=== PATIENT | female | born 1970 | race Caucasian/White ===

== ENCOUNTER 2016-11-01 09:01 | Emergency (ER) | payer OTHER ==
[~2016-11-01] VITALS: Ht 162.5 cm; Wt 86.2 kg
[~2016-11-01 09:01] MED LIST: KETOPROFEN75 MG PO; MOTRIN800 MG PO; PHENERGAN W/DM120 ML PO; PREDNICOT10 MG PO; PROAIR HFA0.09 MG/AC INH; VIBRAMYCIN100 MG PO
[2016-11-01] MEDS ORDERED: NAPROSYN500 MG PO (11:16)
== END 2016-11-01 11:22 | disposition home or self-care (01) ==
LOC: ED 09:01
DX: S20.211A Contusion of right front wall of thorax, initial encounter (principal); F17.200 Nicotine dependence, unspecified, uncomplicated; Z88.0 Allergy status to penicillin; W18.39XA Other fall on same level, initial encounter; Y93.89 Activity, other specified; Y92.89 Other specified places as the place of occurrence of the external cause; Y99.8 Other external cause status

== ENCOUNTER → 2017-12-06 | Outpatient (CLI) | payer OTHER ==
[~2017-12-06] MED LIST changes: +DOXYCYCLINE100 M3 PO; +NAPROSYN500 MG PO
== END | disposition home or self-care (01) ==
LOC: RAD 16:05
DX: J43.9 Emphysema, unspecified (principal); M54.9 Dorsalgia, unspecified

== ENCOUNTER → 2018-01-10 | Outpatient (CLI) | payer OTHER | END | disposition home or self-care (01) | LOC: LAB 16:04 | PROVIDERS: Family Medicine | DX: T14.8XXD Other injury of unspecified body region, subsequent encounter (principal); W57.XXXD Bitten or stung by nonvenomous insect and other nonvenomous arthropods, subsequent encounter ==

== ENCOUNTER 2018-01-22 12:57 | Emergency (ER) | payer OTHER ==
--- NOTE | ~2018-01-22 | EKG ---
[place], [place] ELECTROCARDIOGRAM REPORT NAME: SERGEY BRITO UNIT #: [id number] ROOM: DOCTOR: EPIPHANY DRAFT REPORT BIRTHDATE: [birth year] [facility] Test Date: 2018-01-22 Test Time: 15:35:53 Pat Name: SERGEY BRITO Department: Room: Gender: F [employer]: ROSE : 1970 Requested By: MARTELL BEAVER DNP Order Number: [id number] Reading MD: Yaron Zimmerman MD Measurements Intervals [place] Rate: 78 P: 75 [place]: 141 QRS: 58 QRSD: 84 T: 19 QT: 351 QTc: 400 Interpretive Statements Sinus rhythm No previous ECG available for comparison Electronically Signed On 01-22-2018 15:39:28 PST by Yaron Zimmerman MD CM:EKGRPT:ELECTROCARDIOGRAM REPORT [id number] MARTELL RUSTANY DRAFT REPORT MARTELL BEAVER DNP
[~2018-01-22 12:57] MED LIST changes: -DOXYCYCLINE100 M3 PO
[2018-01-22 14:57] LABS: BASO # 0.1 10*3/uL (0.0-0.1); BASO % 0.5 % (0.0-1.0); EOS # 0.1 10*3/uL (0.0-0.4); EOS % 0.6 % (1.0-4.0); HEMATOCRIT 47.6 % (37.0-47.0); HEMOGLOBIN 16.1 g/dl (12.0-16.0); LYMPH # 3.3 10*3/uL (1.3-4.4); MEAN CELL VOLUME 98.8 fl (81.0-99.0); MEAN CORPUSCULAR HGB 33.4 pg (27.0-31.0); MEAN CORPUSCULAR HGB CONC 33.8 g/dl (33.0-37.0); MEAN PLATELET VOLUME 11.4 fl (9.6-12.3); MONO # 0.9 10*3/uL (0.1-1.0); MONO % 7.3 % (3.0-9.0); NEUT # 7.5 10*3/uL (2.3-7.9); NEUT % 63.3 % (47.0-73.0); PLATELET COUNT AUTOMATED 233 10*3/uL (130-400); RED BLOOD COUNT 4.82 10*6/uL (4.10-5.10); RED CELL DISTRI WIDTH 12.6 % (0-14.5); WHITE BLOOD COUNT 11.8 10*3/uL (4.8-10.8)
[2018-01-22 15:05] LABS: ACT PARTIAL THROMBO TIME 23.6 SECONDS (20.8-31.5)
[2018-01-22 15:16] LABS: ALBUMIN 3.8 gm/dl (3.1-4.5); BUN 6 mg/dl (7-24); CHLORIDE 108 mmol/L (98-107); CREATININE 0.67 mg/dL (0.55-1.02); POTASSIUM 3.9 mmol/L (3.5-5.1); SGOT/AST 12 IU/L (3-35); SGPT/ALT 20 U/L (12-78); SODIUM 141 mmol/L (136-145)
[2018-01-22 15:18] LABS: ALKALINE PHOSPHATASE 55 U/L (45-117)
[2018-01-22 15:19] LABS: TROPONIN I < 0.015 ng/ml (<0.045)
[2018-01-22 15:19] LABS: BILIRUBIN NEGATIVE (NEGATIVE); BLOOD NEGATIVE (NEGATIVE); CLARITY CLEAR (CLEAR); COLOR YELLOW (YELLOW); GLUCOSE NEGATIVE (NEGATIVE); KETONE NEGATIVE (NEGATIVE); LEUKO ESTERASE NEGATIVE (NEGATIVE); NITRITE NEGATIVE (NEGATIVE); PH 5.5 (5.0-9.0); SPECIFIC GRAVITY <= 1.005 (1.005-1.030); UROBILINOGEN 0.2 E.U./dl (0.2-1.0)
[2018-01-22 15:35] LABS: RBC 0-2 rbc/hpf (0-2)
[2018-01-22] MEDS ORDERED: DOXYCYCLINE100 M3 PO (16:18)
== END 2018-01-22 17:12 | disposition home or self-care (01) ==
LOC: ED 12:57
PROVIDERS: Nurse Practitioner Family
DX: B27.90 Infectious mononucleosis, unspecified without complication (principal); R06.02 Shortness of breath; F17.200 Nicotine dependence, unspecified, uncomplicated; Z88.0 Allergy status to penicillin; Z79.1 Long term (current) use of non-steroidal anti-inflammatories (NSAID); Z79.2 Long term (current) use of antibiotics; Z79.899 Other long term (current) drug therapy

== ENCOUNTER → 2018-10-25 | Outpatient (CLI) | payer OTHER ==
[~2018-10-25] MED LIST changes: +DOXYCYCLINE100 M3 PO
== END | disposition home or self-care (01) ==
LOC: US 07:11
DX: N92.1 Excessive and frequent menstruation with irregular cycle (principal); N83.201 Unspecified ovarian cyst, right side

== ENCOUNTER → 2019-05-07 | Outpatient (CLI) | payer BC | END | disposition home or self-care (01) | LOC: MAMMO 12:18 | DX: Z12.31 Encounter for screening mammogram for malignant neoplasm of breast (principal) ==

== ENCOUNTER → 2019-09-20 | Outpatient (CLI) | payer BC ==
[~2019-09-20] MED LIST changes: +CELEXA20 MG PO
== END | disposition home or self-care (01) ==
LOC: COVID19 00:20
DX: Z01.818 Encounter for other preprocedural examination (principal); Z11.59 Encounter for screening for other viral diseases

== ENCOUNTER → 2019-09-27 | Day surgery (SDC) | payer BC ==
[~2019-09-27] VITALS: Ht 160 cm; Wt 77.1 kg
[~2019-09-27] MED LIST changes: +COLACE100 MG PO; +NORCO 5-325 TA1 EACH PO; +ZOFRAN4 MG PO
[2019-09-27 09:33] VITALS: BP 117/56
[2019-09-27 11:04] VITALS: BP 148/87
[2019-09-27 11:19] VITALS: BP 126/64
[2019-09-27 11:34] VITALS: BP 153/100
[2019-09-27 11:49] VITALS: BP 139/88
[2019-09-27 12:08] VITALS: BP 139/88
== END | disposition home or self-care (01) ==
LOC: SDC 09-20 13:15
DX: K81.1 Chronic cholecystitis (principal); F41.9 Anxiety disorder, unspecified; J43.8 Other emphysema; Z98.51 Tubal ligation status; Z98.890 Other specified postprocedural states; Z79.899 Other long term (current) drug therapy

== ENCOUNTER 2020-03-02 00:38 | Emergency (ER) | payer BC ==
[~2020-03-02] VITALS: Ht 160 cm; Wt 64.9 kg
[2020-03-02 02:06] LABS: BASO # 0.1 10*3/uL (0.0-0.1); BASO % 0.7 % (0.0-1.0); EOS # 0.1 10*3/uL (0.0-0.4); EOS % 0.9 % (1.0-4.0); HEMATOCRIT 44.1 % (37.0-47.0); LYMPH % 28.2 % (27.0-41.0); MEAN CELL VOLUME 98.9 fl (81.0-99.0); MEAN CORPUSCULAR HGB 33.4 pg (27.0-31.0); MEAN CORPUSCULAR HGB CONC 33.8 g/dl (33.0-37.0); MEAN PLATELET VOLUME 10.4 fl (9.6-12.3); MONO # 0.8 10*3/uL (0.1-1.0); MONO % 7.2 % (3.0-9.0); NEUT # 6.7 10*3/uL (2.3-7.9); NEUT % 62.8 % (47.0-73.0); PLATELET COUNT AUTOMATED 238 10*3/uL (130-400); RED BLOOD COUNT 4.46 10*6/uL (4.10-5.10); RED CELL DISTRI WIDTH 12.6 % (0-14.5); WHITE BLOOD COUNT 10.6 10*3/uL (4.8-10.8)
[2020-03-02 02:19] LABS: INTERNATIONAL NORM RATIO 0.9 (2.0-3.5)
[2020-03-02 02:27] LABS: ALBUMIN 3.5 gm/dl (3.1-4.5); ALKALINE PHOSPHATASE 76 U/L (45-117); BUN 12 mg/dl (7-24); CHLORIDE 110 mmol/L (98-107); CREATININE 0.52 mg/dL (0.55-1.02); POTASSIUM 3.3 mmol/L (3.5-5.1); SGOT/AST 9 IU/L (3-35); SGPT/ALT 13 U/L (12-78); SODIUM 141 mmol/L (136-145); TOTAL PROTEIN 7.4 gm/dL (6.4-8.2)
[2020-03-02 02:28] LABS: TROPONIN I < 0.015 ng/ml (<0.045)
== END 2020-03-02 06:34 | disposition home or self-care (01) ==
LOC: ED 00:38
PROVIDERS: Emergency Medicine
DX: J44.9 Chronic obstructive pulmonary disease, unspecified (principal); R07.89 Other chest pain; F17.200 Nicotine dependence, unspecified, uncomplicated; Z88.0 Allergy status to penicillin; Z79.899 Other long term (current) drug therapy

== ENCOUNTER 2020-03-31 12:34 | Emergency (ER) | payer OTHER, BC ==
[~2020-03-31] VITALS: Wt 72.6 kg
== END 2020-03-31 14:38 | disposition home or self-care (01) ==
LOC: ED 12:34
DX: S30.1XXA Contusion of abdominal wall, initial encounter (principal); M54.5 Low back pain; F32.9 Major depressive disorder, single episode, unspecified; J44.9 Chronic obstructive pulmonary disease, unspecified; Z87.891 Personal history of nicotine dependence; Z88.0 Allergy status to penicillin; Z79.899 Other long term (current) drug therapy; Z98.890 Other specified postprocedural states; Z98.51 Tubal ligation status; V47.6XXA Car passenger injured in collision with fixed or stationary object in traffic accident, initial encounter; Y93.89 Activity, other specified; Y92.488 Other paved roadways as the place of occurrence of the external cause; Y99.8 Other external cause status

== ENCOUNTER → 2021-11-02 | Outpatient (CLI) | payer BC | END | disposition home or self-care (01) | LOC: US 08:17 | PROVIDERS: ATTEND Internal Medicine | DX: K76.0 Fatty (change of) liver, not elsewhere classified (principal) ==

== ENCOUNTER → 2022-01-25 | Outpatient (CLI) | payer BC | END | disposition home or self-care (01) | LOC: MAMMO 10:30 | PROVIDERS: ATTEND Internal Medicine Nephrology | DX: Z12.31 Encounter for screening mammogram for malignant neoplasm of breast (principal) ==

== ENCOUNTER → 2022-07-28 | Outpatient (CLI) | payer BC | END | disposition home or self-care (01) | LOC: RAD 10:07 | PROVIDERS: ATTEND Internal Medicine | DX: J44.9 Chronic obstructive pulmonary disease, unspecified (principal) ==

== ENCOUNTER → 2022-09-07 | Outpatient (CLI) | payer BC | END | disposition home or self-care (01) | LOC: RAD 11:58 | PROVIDERS: ATTEND Internal Medicine | DX: R07.9 Chest pain, unspecified (principal); R06.02 Shortness of breath; R05.8 Other specified cough ==

== ENCOUNTER → 2022-11-24 | Outpatient (CLI) | payer BC | END | disposition home or self-care (01) | LOC: MAMMO 12:58 | PROVIDERS: ATTEND Nurse Practitioner Women's Health | DX: N64.52 Nipple discharge (principal); N64.4 Mastodynia ==

== ENCOUNTER 2022-11-29 05:54 | Emergency (ER) | payer BC ==
[~2022-11-29] VITALS: Ht 167.6 cm; Wt 99.8 kg
[2022-11-29] MEDS ORDERED: CITALOPRAM40 MG PO (06:05)
[2022-11-29] MEDS ORDERED: ZANAFLEX4 MG PO (07:58)
[2022-11-29] MEDS ORDERED: TRAMADOL HCL50 MG PO (07:58)
== END 2022-11-29 08:01 | disposition home or self-care (01) ==
LOC: ED 05:54
DX: M54.41 Lumbago with sciatica, right side (principal); M79.604 Pain in right leg; F17.210 Nicotine dependence, cigarettes, uncomplicated; Z88.0 Allergy status to penicillin; Z79.899 Other long term (current) drug therapy; Z98.890 Other specified postprocedural states; Z98.51 Tubal ligation status

== ENCOUNTER → 2022-12-10 | Outpatient (CLI) | payer BC ==
[~2022-12-10] MED LIST changes: +CITALOPRAM40 MG PO; +TRAMADOL HCL50 MG PO; +ZANAFLEX4 MG PO
== END | disposition home or self-care (01) ==
LOC: RAD 12:49
PROVIDERS: ATTEND Internal Medicine
DX: M48.061 Spinal stenosis, lumbar region without neurogenic claudication (principal); M85.88 Other specified disorders of bone density and structure, other site; M54.41 Lumbago with sciatica, right side

== ENCOUNTER → 2023-01-24 | Outpatient (CLI) | payer BC | END | disposition home or self-care (01) | LOC: RAD 13:00 | PROVIDERS: ATTEND Internal Medicine | DX: M85.88 Other specified disorders of bone density and structure, other site (principal) ==

== ENCOUNTER → 2023-05-11 | Outpatient (CLI) | payer BC | END | disposition home or self-care (01) | LOC: RAD 11:49 | PROVIDERS: ATTEND Internal Medicine | DX: R07.81 Pleurodynia (principal); M47.814 Spondylosis without myelopathy or radiculopathy, thoracic region ==

== ENCOUNTER 2023-06-14 15:45 | Emergency (ER) | payer BC ==
[~2023-06-14] VITALS: Ht 167.6 cm; Wt 93.9 kg
[2023-06-14 16:18] LABS: BASO % 0.4 % (0.0-1.0); EOS # 0.1 10*3/uL (0.0-0.4); EOS % 0.8 % (1.0-4.0); HEMATOCRIT 44.6 % (37.0-47.0); LYMPH % 29.7 % (27.0-41.0); MEAN CELL VOLUME 104.4 fl (81.0-99.0); MEAN CORPUSCULAR HGB 34.4 pg (27.0-31.0); MEAN PLATELET VOLUME 9.7 fl (9.6-12.3); MONO # 0.8 10*3/uL (0.1-1.0); NEUT % 60.9 % (47.0-73.0); PLATELET COUNT AUTOMATED 228 10*3/uL (130-400); RED BLOOD COUNT 4.27 10*6/uL (4.10-5.10); RED CELL DISTRI WIDTH 14.3 % (0-14.5); WHITE BLOOD COUNT 9.9 10*3/uL (4.8-10.8)
[2023-06-14 16:34] LABS: ACT PARTIAL THROMBO TIME 26.5 SECONDS (20.0-32.1)
[2023-06-14 16:40] LABS: ALKALINE PHOSPHATASE 88 U/L (46-116); BUN 14 mg/dl (9-23); CHLORIDE 103 mmol/L (98-107); POTASSIUM 3.6 mmol/L (3.4-5.1); SGPT/ALT 23 U/L (5-49); TOTAL PROTEIN 6.9 gm/dL (6.0-8.0)
[2023-06-14 16:49] LABS: BILIRUBIN Negative (Negative); BLOOD Negative (Negative); CLARITY Clear (Clear); COLOR Yellow (Yellow); GLUCOSE Negative (Negative); KETONE Negative (Negative); LEUKO ESTERASE Negative (Negative); NITRITE Negative (Negative); SPECIFIC GRAVITY 1.025 (1.001-1.030)
[2023-06-14 16:55] LABS: CALCIUM OXALATE CRYSTALS 2+; WBC 0-2 wbc/hpf (0-5)
[2023-06-14 16:56] LABS: BACTERIA TRACE
== END 2023-06-14 18:39 | disposition home or self-care (01) ==
LOC: ED 15:45
PROVIDERS: Physician Assistant Medical
DX: R07.89 Other chest pain (principal); M54.6 Pain in thoracic spine; R30.0 Dysuria; J45.909 Unspecified asthma, uncomplicated; F17.210 Nicotine dependence, cigarettes, uncomplicated; Z88.0 Allergy status to penicillin; Z79.899 Other long term (current) drug therapy; Z98.890 Other specified postprocedural states; Z98.51 Tubal ligation status

== ENCOUNTER → 2023-08-03 | Outpatient (CLI) | payer BC | END | disposition home or self-care (01) | LOC: RAD 11:58 | PROVIDERS: ATTEND Internal Medicine | DX: M47.814 Spondylosis without myelopathy or radiculopathy, thoracic region (principal); M43.8X4 Other specified deforming dorsopathies, thoracic region ==

== ENCOUNTER → 2023-08-30 | Outpatient (CLI) | payer BC | END | disposition home or self-care (01) | LOC: MRI 09:46 | PROVIDERS: ATTEND Internal Medicine | DX: S22.078A Other fracture of T9-T10 vertebra, initial encounter for closed fracture (principal); M47.814 Spondylosis without myelopathy or radiculopathy, thoracic region; M48.04 Spinal stenosis, thoracic region; R60.0 Localized edema; X58.XXXA Exposure to other specified factors, initial encounter; Y93.89 Activity, other specified; Y92.89 Other specified places as the place of occurrence of the external cause; Y99.8 Other external cause status ==

== ENCOUNTER → 2024-11-07 | Outpatient (CLI) | payer BC | END | disposition home or self-care (01) | LOC: US 07:48 | PROVIDERS: ATTEND Internal Medicine | DX: Z12.31 Encounter for screening mammogram for malignant neoplasm of breast (principal); N95.0 Postmenopausal bleeding; R92.323 Mammographic fibroglandular density, bilateral breasts ==